=== PATIENT | female | born 1960 | race Caucasian/White ===

== ENCOUNTER 2019-04-14 18:30 | Emergency (ER) | payer BC, OTHER ==
[2019-04-14 20:02] VITALS: BP 136/85
[2019-04-14] MEDS ORDERED: DOXYcycline CAP(*) 100 MG PO ONE ×2 (20:41→20:43)
[2019-04-14] MEDS ORDERED: Albuterol HFA INHALER* 8 gm MDI INH ONE (20:42)
--- NOTE | 2019-04-14 20:44 | UC ---
Throat Pain/Nasal Blane HPI - HPI Summary HPI Summary: 59-year-old female comes in with a chief complaint of one month of upper respiratory tract infection symptoms. Last 2 weeks been having yellow sputum and a cough. Feels like the infection settled into her chest. She has been having coughing episodes. Tonight she had a coughing episode that did bring up some sputum however during a coughing episode she cannot catch her breath and felt like she might pass out. She has been hearing congestion in her chest as well as she feels like that has improved since coughing up all the sputum. No history of asthma. No recent fevers. - History of Current Complaint Chief Complaint: UCGeneralIllness Stated Complaint: COUGH/CONGESTION Time Seen by Provider: 04/14/19 20:31 Pain Intensity: 0 - Allergies/Home Medications Allergies/Adverse Reactions: Allergies Allergy/AdvReac Type Severity Reaction Status Date / Time aspirin Allergy See Comment Verified 04/14/19 20:04 Tree Nuts Allergy Anaphylatic Verified 04/14/19 20:04 Shock protein Allergy Vomiting Uncoded 04/14/19 20:04 Home Medications: Home Medications Pioglitazone HCl 15 mg PO DAILY 04/14/19 [History Confirmed 04/14/19] Pravastatin (NF) [Pravachol (NF)] 10 mg PO EVERY OTHER DAY 04/14/19 [History Confirmed 04/14/19] PMH/Surg Hx/FS Hx/Imm Hx Previously Healthy: Yes Endocrine History: Diabetes, Dyslipidemia Cardiovascular History: Hypertension - Surgical History Surgical History: Yes Surgery Procedure, Year, and Place: x3 c sections. oral surgery. right carpal tunnel release - Family History Known Family History: Positive: Cardiac Disease, Hypertension, Diabetes - Social History Alcohol Use: Rare Substance Use Type: None Smoking Status (MU): Never Smoked Tobacco - Immunization History Most Recent Influenza Vaccination: none Review of Systems All Other Systems Reviewed And Are Negative: Yes Constitutional: Positive: Other - see hpi Skin: Positive: Negative Eyes: Positive: Negative ENT: Positive: Nasal Discharge, Sinus Congestion Respiratory: Positive: Shortness Of Breath, Cough, Other - see hpi Cardiovascular: Positive: Negative Gastrointestinal: Positive: Negative Motor: Positive: Negative Neurovascular: Positive: Negative Musculoskeletal: Positive: Negative Neurological: Positive: Negative Psychological: Positive: Negative Is Patient Immunocompromised?: No Physical Exam Triage Information Reviewed: Yes Appearance: No Pain Distress, Well-Nourished, Ill-Appearing - mild Vital Signs: Initial Vital Signs Temp 97.4 F 04/14/19 19:57 Pulse 67 04/14/19 19:57 Resp 16 04/14/19 19:57 BP 136/85 04/14/19 19:57 Pulse Ox 100 04/14/19 19:57 Vital Signs Reviewed: Yes Eye Exam: Normal Eyes: Positive: Conjunctiva Clear ENT: Positive: Pharynx normal, Nasal congestion, TMs normal Neck: Positive: Supple Respiratory: Positive: Lungs clear, Normal breath sounds, No respiratory distress, Other: - Positive cough. Cardiovascular: Positive: RRR Musculoskeletal: Positive: Strength Intact, ROM Intact Neurological: Positive: Alert, Muscle Tone Normal Psychological: Positive: Age Appropriate Behavior Skin Exam: Normal Throat Pain/Nasal Course/Dx - Course Course Of Treatment: Patient's had a month of symptoms therefore we will treat with doxycycline. Going to try albuterol see if that helps open up her airways. We discussed getting a chest x-ray but decided to treat first and then get the chest x-ray if not improving or worse. Pasty reevaluated if not improving or worse. - Differential Dx/Diagnosis Provider Diagnosis: Bronchitis Discharge ED - Sign-Out/Discharge Documenting (check all that apply): Patient Departure All imaging exams completed and their final reports reviewed: No Studies - Discharge Plan Condition: Stable Disposition: HOME Prescriptions: DOXYcycline CAP(*) [DOXYcycline 100MG CAP(*)] 100 mg PO BID #[id number] cap Patient Education Materials: Acute Bronchitis (ED) Referrals: Jb Watkins MD [Primary Care Provider] - Additional Instructions: FOLLOW UP WITH YOUR DOCTOR IF NOT COMPLETELY IMPROVED. GET REEVALUATED SOONER IF NOT IMPROVING OR WORSE OR ANY QUESTIONS OR CONCERNS. - Billing Disposition and Condition Condition: STABLE Disposition: Home
== END 2019-04-14 21:06 | disposition home or self-care (01) ==
LOC: UCCORT 18:30
DX: J40 Bronchitis, not specified as acute or chronic (principal); R09.81 Nasal congestion; R09.89 Other specified symptoms and signs involving the circulatory and respiratory systems; E11.9 Type 2 diabetes mellitus without complications; I10 Essential (primary) hypertension; E78.5 Hyperlipidemia, unspecified; Z79.899 Other long term (current) drug therapy; Z88.6 Allergy status to analgesic agent; Z91.018 Allergy to other foods
CPT/HCPCS: 99213; A9270-GY; G0463